=== PATIENT | male | born 1955 | race Caucasian/White ===

== ENCOUNTER → 2019-08-27 09:32 | Outpatient (CLI) | payer MEDICARE, OTHER, SELFPAY ==
--- NOTE | ~2019-08-27 | CT_ITS ---
EXAMINATION: CT chest wo con DATE: 08/27/2019 09:54 INDICATION: Abnormal findings on diagnostic imaging, prior CT showing masslike opacity of the right l ower lobe TECHNIQUE: Computed tomography (CT) of the chest was performed without intravenous contrast. The dose -length product (DLP) was 578.54 mGy-cm. Automated exposure control and iterative reconstruction tech nique were employed. COMPARISON: 06/21/2019 FINDINGS: There is moderate emphysema. The previously described masslike opacity of the right lower l obe has nearly completely resolved. There is a residual bandlike area of scarring. There are some are as of residual patchy opacity involving the right upper lobe. No pleural effusion or pneumothorax is identified. The heart size is normal. There are no pathologically enlarged thoracic lymph nodes. Ther e is a 1.2 cm area of fluid attenuation in the skin of the left upper back, most consistent with a se baceous cyst. There are bridging osteophytes at multiple levels in the spine, consistent with diffuse idiopathic skeletal hyperostosis (DISH). IMPRESSION: 1. Near complete interval resolution of the previously described masslike opacity of the right lower lobe, most consistent with resolving pneumonia. 2. Small patchy opacities of the right upper lobe, likely infectious or inflammatory. 3. Moderate emphysema. Reviewed, dictated and finalized at location A. IMPRESSION: 1. Near complete interval resolution of the previously described masslike opaci ty of the right lower lobe, most consistent with resolving pneumonia. 2. Small patchy opacities of the right upper lobe, likely infectious or inflamm atory. 3. Moderate emphysema.
== END ==
PROVIDERS: Visit Provider Family Medicine
DX: R93.89 Abnormal findings on diagnostic imaging of other specified body structures (principal); J43.9 Emphysema, unspecified; R91.8 Other nonspecific abnormal finding of lung field
CPT/HCPCS: 71250

== ENCOUNTER → 2020-12-17 10:50 | Outpatient (CLI) | payer MEDICARE, SELFPAY ==
--- NOTE | ~2020-12-17 | XR_ITS ---
XR cervical spine 4-5V DATE: 12/17/2020 11:52 INDICATION: Neck pain, radiculopathy TECHNIQUE: Standing AP, open-mouth, lateral, swimmer views COMPARISON: 06/15/2019 cervical spine FINDINGS: C1 and C2 are normally aligned and the odontoid process is intact. No fracture or dislocation or locked facet or prevertebral soft tissue swelling is evident. There is mild degenerative change. There is diffuse osteopenia. IMPRESSION: Mild degenerative change and diffuse osteopenia Reviewed, dictated and finalized at location A.
--- NOTE | ~2020-12-17 | XR_ITS ---
XR lumbar spine 2-3V DATE: 12/17/2020 11:52 INDICATION: Lumbar back pain, radiculopathy TECHNIQUE: Standing AP, lateral and coned lateral lumbosacral views COMPARISON: 04/01/2018 lumbar spine FINDINGS: Diffuse osteopenia. Mild levo scoliosis is again noted. Multilevel degenerative disc disease, moderately prominent L1-2, L2-3 and L5-S1, mild at L3-4 and L4- 5. Persistent mild retrolisthesis at L2-3, L3-4 and L5-S1. Concavity of the inferior vertebral endplate of L3, also present on 04/01/2018. No interval fracture or bone destruction is evident. The lumbar pedicles are intact. The sacroiliac joints appear normal. IMPRESSION: No significant change since 04/01/2018 Reviewed, dictated and finalized at location A.
== END ==
PROVIDERS: PCP Family Medicine; Visit Provider Pain Medicine Interventional Pain Medicine
DX: M47.27 Other spondylosis with radiculopathy, lumbosacral region (principal); M48.07 Spinal stenosis, lumbosacral region; M47.812 Spondylosis without myelopathy or radiculopathy, cervical region
CPT/HCPCS: 72050; 72100

== ENCOUNTER → 2021-02-03 09:49 | Outpatient (CLI) | payer MEDICARE, SELFPAY ==
--- NOTE | ~2021-02-03 | XR_ITS ---
EXAMINATION: XR shoulder LT min 2V DATE: 02/03/2021 11:52 INDICATION: Left shoulder pain. TECHNIQUE: 4 views of left shoulder were obtained. COMPARISON: Left shoulder radiographs 06/15/2019 FINDINGS: Bone alignment is normal. No fracture. There is a suture anchor in humeral head. There is m ild osteoarthritis of glenohumeral joint. There are likely changes of distal clavicle resection. IMPRESSION: 1. Mild left glenohumeral joint osteoarthritis. Reviewed, dictated and finalized at location A.
--- NOTE | ~2021-02-03 | XR_ITS ---
XR cervical spine 4-5V DATE: 02/03/2021 11:52 INDICATION: Shoulder pain, cervical radiculopathy TECHNIQUE: Lateral, swimmer's, AP and open-mouth views COMPARISON: 07/12/2019 cervical spine FINDINGS: There is mild retrolisthesis at C3-4. There is mild degenerative disc disease at C2-3, C3-4, C4-5. More prominent degenerative disc disease at C5-6 and C6-7. C1 and C2 are normally aligned and the odontoid process is intact. No fracture or dislocation or lock ed facet or prevertebral soft tissue swelling is detected. IMPRESSION: Cervical spondylosis; no fracture or dislocation Reviewed, dictated and finalized at location A.
--- NOTE | ~2021-02-03 | XR_ITS ---
EXAMINATION: XR shoulder RT min 2V DATE: 02/03/2021 11:52 INDICATION: Right shoulder pain. TECHNIQUE: 4 views of right shoulder were obtained. COMPARISON: Right shoulder radiographs 01/29/2004 FINDINGS: Bone alignment is normal. No fracture. There is mild osteoarthritis of glenohumeral joint a nd severe osteoarthritis of acromioclavicular joint. IMPRESSION: 1. Polyarticular osteoarthritis. Reviewed, dictated and finalized at location A.
== END ==
PROVIDERS: PCP Family Medicine; Visit Provider Pain Medicine Interventional Pain Medicine
DX: M47.812 Spondylosis without myelopathy or radiculopathy, cervical region (principal); M19.012 Primary osteoarthritis, left shoulder; M19.011 Primary osteoarthritis, right shoulder
CPT/HCPCS: 72050; 73030

== ENCOUNTER → 2022-04-08 09:34 | Outpatient (CLI) | payer MEDICARE, SELFPAY ==
--- NOTE | ~2022-04-08 | XR_ITS ---
XR lumbar spine 2-3V DATE: 04/08/2022 09:52 INDICATION: Chronic low back pain. No recent injury. TECHNIQUE: AP, lateral, coned lateral lumbosacral views COMPARISON: 12/17/2020 lumbar spine FINDINGS: There is diffuse osteopenia. There is mild thoracolumbar levoscoliosis. Lumbar and lumbosacral interspaces are well preserved but there is mild to moderate degenerative spur ring throughout the lumbar spine. The lumbar pedicles are intact. No fracture or bone destruction or spondylolisthesis. The sacroiliac joints are intact. IMPRESSION: Osteopenia Mild levoscoliosis Mild to moderate degenerative spurring Reviewed, dictated and finalized at location A.
== END ==
DX: M65.312 Trigger thumb, left thumb (principal); M47.812 Spondylosis without myelopathy or radiculopathy, cervical region; M47.813 Spondylosis without myelopathy or radiculopathy, cervicothoracic region; M47.816 Spondylosis without myelopathy or radiculopathy, lumbar region; M47.817 Spondylosis without myelopathy or radiculopathy, lumbosacral region; M25.519 Pain in unspecified shoulder; M17.9 Osteoarthritis of knee, unspecified; G89.4 Chronic pain syndrome; M85.88 Other specified disorders of bone density and structure, other site
CPT/HCPCS: 72100

== ENCOUNTER 2022-08-13 15:01 | Outpatient (CLI) | payer MEDICARE, SELFPAY ==
--- NOTE | ~2022-08-13 | MR_ITS ---
EXAMINATION: MR brain/brain stem wo/w con DATE: 08/13/2022 16:00 INDICATION: Head injury. TECHNIQUE: Magnetic resonance imaging (MRI) of the brain and brainstem was performed without and with 20 mL MultiHance intravenous contrast. COMPARISON: Brain MRI 03/04/2004 FINDINGS: There are small old infarcts in the cerebellum bilaterally. There are old infarcts in the b ilateral basal ganglia. There are scattered areas of nonspecific increased T2-weighted signal intensi ty in the cerebral white matter. There is no intracranial hemorrhage, acute infarction, or abnormal i ntracranial mass lesion. The ventricles are normal in size. There is an old blowout fracture of media l wall of left orbit. The mastoid air cells are normal. There is mucosal thickening in the paranasal sinuses. IMPRESSION: 1. 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 2. Mild nonspecific cerebral white matter disease, which likely represents chronic small vessel ische vibha disease. Reviewed, dictated and finalized at location A. 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 2. 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
== END 2022-08-13 15:02 ==
DX: S09.90XA Unspecified injury of head, initial encounter (principal); R90.82 White matter disease, unspecified; Z86.73 Personal history of transient ischemic attack (TIA), and cerebral infarction without residual deficits; T14.90XA Injury, unspecified, initial encounter
CPT/HCPCS: 70553; A9577